=== PATIENT | male | born 1980 | race American Indian/Alaskan Native ===

== ENCOUNTER 2016-10-07 10:05 | Outpatient (CLI) | payer OTHER ==
--- NOTE | 2016-10-07 10:58 | Cat Scan Report ---
CT HEAD WITHOUT CONTRAST INDICATION: Intermittent headaches. COMPARISON: None similar at this institution. FINDINGS: Noncontrast head CT demonstrates normal, symmetric ventricles and sulci without acute or recent infarct, hemorrhage, mass effect or midline shift. No abnormal extra-axial fluid collections. Posterior fossa structures and basilar cisterns appear within normal limits. Symmetric eye globes. Clear paranasal sinuses and mastoid air cells. Mild nasal septal deviation. Intact calvarium. Normal overlying scalp soft tissues. CONCLUSION: No acute intracranial CT abnormality, as described. Thank you for the opportunity to participate in this patient's care.
== END 2016-10-07 10:06 | disposition home or self-care (01) ==
LOC: CT 10:05
PROVIDERS: ATTEND Internal Medicine
DX: F20.9 Schizophrenia, unspecified (principal); F32.9 Major depressive disorder, single episode, unspecified; J34.2 Deviated nasal septum
CPT/HCPCS: 70450